=== PATIENT | female | born 2000 | race Caucasian/White ===

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

== ENCOUNTER 2018-04-10 22:14 | Inpatient (IN) | payer BC ==
[2018-04-10] MEDS ORDERED: Sodium Chloride 0.9% 10 ML Syringe FLUSH PRN (23:24)
[2018-04-10] MEDS ORDERED: Ondansetron 4 MG/2 ML SDV IVPUSH PRN (23:24)
[2018-04-10] MEDS ORDERED: Nalbuphine 20 MG/ML 1 ML Syringe IVPUSH PRN (23:24)
[2018-04-10] MEDS ORDERED: Zolpidem 5 MG Tab PO PRN (23:24)
[2018-04-10] MEDS ORDERED: Oxytocin/Lactated Ringers 10 UNIT/1,000 ML BAG IV SCH (23:30)
--- NOTE | 2018-04-10 23:37 | PCM.LDHP ---
L&D History of Present Illness - General Date of Service: 04/10/18 Admit Problem/Dx: Patient Status Order with Admit Dx/Problem 04/10/18 23:24 Patient Status [ADT] Routine Admission Diagnosis/Problem Admission Diagnosis/Problem Itching Source of Information: Patient History Limitations: Reports: No Limitations - History of Present Illness Introduction:: Patient is a 17 y/o at 39 5/7 wks who presents for concerns of itching on her hands and feet. States this started about Friday or so this last week. Forgot to bring it up at her appointment earlier this week. States has been worsening and feels like "bug bites all over my hands". Otherwise doing well. Notes good FM. No signs of labor - Related Data Allergies/Adverse Reactions: Allergies Allergy/AdvReac Type Severity Reaction Status Date / Time No Known Allergies Allergy Verified 05/12/17 21:58 Home Medications: Home Meds Ascorbate Calcium [Vitamin C] 500 mg PO DAILY 04/11/18 [History] Cholecalciferol (Vitamin D3) [Vitamin D] 5,000 unit PO DAILY 04/11/18 [History] Ferrous Sulfate [Iron] 325 mg PO DAILY 04/11/18 [History] Pnv No.95/Ferrous Fum/Folic AC [ Multivitamin Tablet] 1 each PO DAILY [History] Past Medical History - Past Health History Medical/Surgical History: Denies Medical/Surgical History SAGGER SOAK History: Reports: : 1 Para: 0 LMP (Approximate): Social & Family History - Tobacco Use Smoking Status *Q: Never Smoker - Caffeine Use Caffeine Use: Reports: Coffee, Soda, Tea - Alcohol Use Alcohol Use History: No - Recreational Drug Use Recreational Drug Use: No H&P Review of Systems - Review of Systems: Review Of Systems: See Below General: Reports: No Symptoms Pulmonary: Reports: No Symptoms Cardiovascular: Reports: No Symptoms Gastrointestinal: Reports: No Symptoms Genitourinary: Reports: No Symptoms Musculoskeletal: Reports: No Symptoms Skin: Reports: Pruritis Psychiatric: Reports: No Symptoms Neurological: Reports: No Symptoms L&D Exam - Exam Exam: See Below - OB Specific Contraction Intensity: Irritability Movement: Active Heart Tones: Present Heart Tones per Min: 135 Heart Rate (FHR) Variability: Moderate (6-25 bmp) Presentation: Vertex - Escobar Score Escobar Score Cervix Position: Posterior Escobar Score Consistency: Soft Escobar Score Effacement: 51-70% Escobar Score Dilation: 1-2 cm Escobar Score 's Station: -2 Escobar Score Total: 6 - Exam General: Alert, Oriented, Cooperative Lungs: Clear to Auscultation, Normal Respiratory Effort Cardiovascular: Regular Rate, Regular Rhythm GI/Abdominal Exam: Soft, Non-Tender Genitourinary: Normal external exam Extremities: Normal Inspection Skin: Warm, Dry, Intact - Patient Data Result Diagrams: 04/10/18 23:50 - Problem List (1) 39 weeks gestation of SNOMED Code(s): 60284017 ICD Code: Z3A.39 - 39 WEEKS GESTATION OF Status: Acute Current Visit: Yes (2) Solar pruritus SNOMED Code(s): 164815500 ICD Code: L29.9 - PRURITUS, UNSPECIFIED Status: Acute Current Visit: Yes Problem List Initiated/Reviewed/Updated: Yes Orders Last 24hrs: Active Orders 24 hr Category Date Time Status Patient Status [ADT] Routine ADT 04/10/18 23:24 Ordered Activity as Tolerated [RC] PFP Care 04/10/18 23:24 Ordered Communication Order [RC] ASDIRECTED Care 04/10/18 23:24 Ordered Communication Order [RC] ASDIRECTED Care 04/10/18 23:24 Ordered Communication Order [RC] ASDIRECTED Care 04/10/18 23:24 Ordered Heart Tones [RC] ASDIRECTED Care 04/10/18 23:24 Ordered Non Stress Test [RC] PER UNIT ROUTINE Care 04/10/18 23:24 Ordered Non Stress Test [RC] PER UNIT ROUTINE Care 04/10/18 23:24 Ordered Notify Provider [RC] ASDIRECTED Care 04/10/18 23:24 Ordered Notify Provider [RC] PRN Care 04/10/18 23:24 Ordered Peripheral IV Care [RC] . DIRECTED Care 04/10/18 23:24 Ordered Vaginal Exam [RC] ASDIRECTED Care 04/10/18 23:24 Ordered Vital Signs [RC] ASDIRECTED Care 04/10/18 23:24 Ordered Regular Diet [DIET] Diet 04/10/18 Dinner Ordered ALANINE AMINOTRANSFERASE,ALT [CHEM] Routine Lab 04/10/18 23:24 Ordered ASPARTATE AMNIOTRANSFERASE,AST [CHEM] Routine Lab 04/10/18 23:24 Ordered BILE ACIDS [REF] Routine Lab 04/10/18 23:24 Ordered CBC W/O DIFF,HEMOGRAM [HEME] Routine Lab 04/10/18 23:24 Ordered RAPID PLASMA REAGIN,RPR [CHEM] Routine Lab 04/10/18 23:24 Ordered TYPE AND SCREEN [BBK] Routine Lab 04/10/18 23:24 Ordered Lactated Ringers [Ringers, Lactated] 1,000 ml Med 04/10/18 23:30 Ordered IV ASDIRECTED Nalbuphine [Nubain] Med 04/10/18 23:24 Ordered 10 mg IVPUSH Q2H PRN Ondansetron [Zofran] Med 04/10/18 23:24 Ordered 4 mg IVPUSH Q4H PRN Oxytocin/Lactated Ringers [Pitocin in LR 10 Units/1,000 Med 04/10/18 23:30 Ordered ML] 10 unit in 1,000 ml IV .CONTINUOUS Oxytocin/Lactated Ringers [Pitocin in LR 10 Units/1,000 Med 04/10/18 23:30 Ordered ML] 10 unit in 1,000 ml IV TITRATE Sodium Chloride 0.9% [Saline Flush] Med 04/10/18 23:24 Ordered 10 ml FLUSH ASDIRECTED PRN Zolpidem [Ambien] Med 04/10/18 23:24 Ordered 5 mg PO BEDTIME PRN Electronic Heart Tones Ext w TOCO [WOMSER] Oth 04/10/18 23:24 Ordered Routine Electronic Heart Tones Internal [WOMSER] Per Unit Oth 04/10/18 23:24 Ordered Routine Peripheral IV Insertion Adult [OM.PC] Routine Oth 04/10/18 23:24 Ordered Resuscitation Status Routine Resus Stat 04/10/18 23:24 Ordered Assessment/Plan Comment:: 17 y/o at 39 5/7 wks who presents with concerns of itching of her hands and soles of her feet. Reviewed with patient there are a lot of etiologies for itching in . One concern, however, would be for cholestasis of . Unfortunately testing for this disorder takes about 3-5 days to return and if disorder present recommendations would be for delivery anytime after 36 weeks. Given current gestational age and and cervical exam recommendations would be for sending off laboratory testing, but beginning IOL. Patient and her boyfriend agree. * Bile acids and LFT's drawn * CBC, T&S, RPR * GBS negative, no need for antibiotics * Start pitocin for induction, AROM when able * Pain management per patient preference * Anticipate
[2018-04-11] MEDS: Lactated Ringers 1,000 ML IV SCH ×4 (00:19→16:05)
[2018-04-11] MEDS: Oxytocin/Lactated Ringers 10 UNIT/1,000 ML BAG IV SCH ×2 (00:20→12:38)
--- NOTE | 2018-04-11 08:17 | PCM.PNLD ---
Labor Progress Note - VS & Meds Active Medications: Current Medications Lactated Ringer's (Ringers, Lactated) 1,000 mls @ 40 mls/hr IV ASDIRECTED JATINDER Last Admin: 04/11/18 00:19 Dose: 40 mls/hr Oxytocin/Lactated Ringer's (Pitocin In Lr 10 Units/1,000 Ml) 10 unit in 1,000 mls @ 12 mls/hr IV TITRATE JATINDER; Protocol Last Titration: 04/11/18 06:30 Dose: 15 munits/min, 90 mls/hr Oxytocin/Lactated Ringer's (Pitocin In Lr 10 Units/1,000 Ml) 10 unit in 1,000 mls @ 500 mls/hr IV ASDIRECTED JATINDER Nalbuphine HCl (Nubain) 10 mg IVPUSH Q2H PRN PRN Reason: pain Ondansetron HCl (Zofran) 4 mg IVPUSH Q4H PRN PRN Reason: Nausea/Vomiting Sodium Chloride (Saline Flush) 10 ml FLUSH ASDIRECTED PRN PRN Reason: Keep Vein Open Zolpidem Tartrate (Ambien) 5 mg PO BEDTIME PRN PRN Reason: Insomnia - Uterine Contractions Uterine Monitoring Mode: External [place] Contraction Intensity: Mild Uterine Resting Tone: Soft - Monitoring Monitor Mode: External Ultrasound Heart Rate (FHR) Baseline: 140 Heart Rate (FHR) Variability: Moderate (6-25 bmp) Accelerations: Present, 15x15 Decelerations: None Strip Review: Category I - Vaginal Exam Dilation (cm): 2-3 Effacement (Percent): 50 Station: -2 Cervical Position: Midposition - Labor Progress (Free Text) Labor Progress: Currently on 15 of pitocin and only reporting mild contractions. AROM performed. Continue management otherwise
[2018-04-11] MEDS ORDERED: Ondansetron 4 MG/2 ML SDV IVPUSH PRN (09:43)
[2018-04-11] MEDS ORDERED: fentaNYL 100 MCG/2 ML SDV EPIDUR PRN (09:43)
[2018-04-11] MEDS ORDERED: ePHEDrine 50 MG/ML SDV IVPUSH PRN (09:43)
[2018-04-11] MEDS ORDERED: Bupivacaine/fentaNYL/NS 100 ML Bag EPIDUR SCH (09:45)
--- NOTE | 2018-04-11 09:49 | PCM.PREANE ---
Preanesthetic Assessment - Anesthesia/Transfusion/Family Hx Anesthesia History: Prior Anesthesia Without Reaction Family History of Anesthesia Reaction: No Transfusion History: No Prior Transfusion(s) Intubation History: Unknown - Review of Systems General: No Symptoms Pulmonary: No Symptoms Cardiovascular: No Symptoms, Palpitations (short intervals sporadic) Gastrointestinal: No Symptoms (GERD), Diarrhea Neurological: No Symptoms Other: Reports: None, Depression, Anxiety - Physical Assessment NPO Status Date: 04/11/18 NPO Status Time: 10:00 Pulse: 70 O2 Sat by Pulse Oximetry: 99 Respiratory Rate: 18 Blood Pressure: 110/57 Temperature: 36.8 C Height: 1.68 m Weight: 78.471 kg ASA Class: 2 Mental Status: Alert & Oriented x3 Airway Class: Mallampati = 2 Dentition: Reports: Normal Dentition, Caries Thyro-Mental Finger Breadths: 3 Mouth Opening Finger Breadths: 3 ROM/Head Extension: Full Lungs: Clear to Auscultation, Normal Respiratory Effort Cardiovascular: Regular Rate, Regular Rhythm, No Murmurs - Lab Values: Laboratory Last Values WBC 9.77 K/mm3 (3.98-10.04) 04/10/18 23:50 RBC 3.48 M/mm3 (3.98-5.22) L 04/10/18 23:50 Hgb 9.5 gm/L (11.2-15.7) L 04/10/18 23:50 Hct 30.1 % (34.1-44.9) L 04/10/18 23:50 MCV 86.5 fl (79.4-94.8) 04/10/18 23:50 MCH 27.3 pg (25.6-32.2) 04/10/18 23:50 MCHC 31.6 g/dl (32.2-35.5) L 04/10/18 23:50 RDW Std Deviation 40.3 fL (36.4-46.3) 04/10/18 23:50 Plt Count 223 K/mm3 (182-369) 04/10/18 23:50 MPV 11.5 fl (9.4-12.3) 04/10/18 23:50 AST 26 U/L (15-37) 04/10/18 23:50 ALT 26 U/L (14-59) 04/10/18 23:50 Blood Type O POSITIVE 04/10/18 23:50 Gel Antibody Screen Negative 04/10/18 23:50 Above lab values reviewed and noted and within acceptable ranges to proceed with epidural. - Allergies Allergies/Adverse Reactions: Allergies Allergy/AdvReac Type Severity Reaction Status Date / Time No Known Allergies Allergy Verified 05/12/17 21:58 - Anesthesia Plan Pre-Op Medication Ordered: None - Acknowledgements Anesthesia Type Planned: Epidural Pt an Appropriate Candidate for the Planned Anesthesia: Yes Alternatives and Risks of Anesthesia Discussed w Pt/Guardian: Yes Pt/Guardian Understands and Agrees with Anesthesia Plan: Yes PreAnesthesia Questionnaire - Past Health History Medical/Surgical History: Denies Medical/Surgical History Genitourinary History: Reports: UTI, Recurrent [employer] WORK[employer] History: Reports: Psychiatric History: Reports: Anxiety, Depression - Past Surgical History Female Surgical History: Reports: None - SUBSTANCE USE Smoking Status *Q: Never Smoker Second Hand Smoke Exposure: No Recreational Drug Use History: No - HOME MEDS Home Medications: Home Meds Ascorbate Calcium [Vitamin C] 500 mg PO DAILY 04/11/18 [History] Cholecalciferol (Vitamin D3) [Vitamin D] 5,000 unit PO DAILY 04/11/18 [History] Ferrous Sulfate [Iron] 325 mg PO DAILY 04/11/18 [History] Pnv No.95/Ferrous Fum/Folic AC [ Multivitamin Tablet] 1 each PO DAILY [History] - CURRENT (IN HOUSE) MEDS Current Meds: Current Medications Ephedrine Sulfate (Ephedrine Sulfate) 5 mg IVPUSH ASDIRECTED PRN PRN Reason: Hypotension Fentanyl (Sublimaze) 100 mcg EPIDUR Q3H PRN PRN Reason: Pain Fentanyl/Bupivacaine HCl (Fentanyl/Bupivacaine/Ns 2 Mcg-0.125% 100 Ml) 100 ml EPIDUR ASDIRECTED JATINDER Lactated Ringer's (Ringers, Lactated) 1,000 mls @ 40 mls/hr IV ASDIRECTED JATINDER Last Admin: 04/11/18 09:36 Dose: 999 mls/hr Oxytocin/Lactated Ringer's (Pitocin In Lr 10 Units/1,000 Ml) 10 unit in 1,000 mls @ 12 mls/hr IV TITRATE JATINDER; Protocol Last Titration: 04/11/18 06:30 Dose: 15 munits/min, 90 mls/hr Oxytocin/Lactated Ringer's (Pitocin In Lr 10 Units/1,000 Ml) 10 unit in 1,000 mls @ 500 mls/hr IV ASDIRECTED JATINDER Nalbuphine HCl (Nubain) 10 mg IVPUSH Q2H PRN PRN Reason: pain Last Admin: 04/11/18 09:35 Dose: 10 mg Ondansetron HCl (Zofran) 4 mg IVPUSH Q4H PRN PRN Reason: Nausea/Vomiting Ondansetron HCl (Zofran) 4 mg IVPUSH ONETIME PRN PRN Reason: Nausea/Vomiting Sodium Chloride (Saline Flush) 10 ml FLUSH ASDIRECTED PRN PRN Reason: Keep Vein Open Zolpidem Tartrate (Ambien) 5 mg PO BEDTIME PRN PRN Reason: Insomnia
[2018-04-11] MEDS ORDERED: Famotidine 20 MG Tab PO ONE (12:28)
[2018-04-11] MEDS ORDERED: Calcium Carbonate 500 MG Tab.Chew PO PRN (13:25)
[2018-04-11] MEDS ORDERED: Misoprostol 200 MCG Tab ONE (17:53)
--- NOTE | 2018-04-11 18:09 | PCM.DEL ---
L & D Note - General Info Date of Service: 04/11/18 - Delivery Note Labor: Induced by ARM, Induced by Oxytocin Delivery Outcome: Livebirth Infant Delivery Method: Spontaneous Vaginal Delivery-Single Infant Delivery Mode: Spontaneous Presentation: Right Occiput Anterior (HAMMAD) Nuchal Cord: Present (Not able to be reduced) Anesthesia Type: Epidural Amniotic Fluid Description: Clear Episiotomy Type: None Laceration: 2nd Degree, Perineal Suture type: Vicryl Suture size: 2-0 Placenta: Intact, Spontaneous Cord: 3 Vessels Estimated Blood Loss: 500 Resuscitation Needed: Yes Reading: Bulb Syringe, Stimulated, Warmed, [place] Used, Warmer Used Score 1 min: 8 Score 5 min: 9 Post Delivery Events: Shoulder Dystocia Delivery Comments (Free Text/Narrative):: Patient found to be complete and began pushing. With maternal pushing effort head delivered from an HAMMAD presentation. Nuchal cord present, but not able to be reduced. With gentle downward traction the anterior shoulder did not deliver right away. Patient repositioned slightly and still anterior shoulder did not deliver. Patient then placed in deeper McRobert's and suprapubic pressure applied and anterior shoulder did deliver. Total time < 30 seconds. Remainder of then quickly delivered and placed on maternal abdomen. Cord clamped and cut. Cord blood obtained. Placenta allowed time to separate and expelled intact. Bleeding was brisk and so patient given 600 mcg of buccal cytotec. She responded well to this. - General Info Date of Service: 04/11/18 - Patient Data Vitals - Most Recent: Last Vital Signs Temp 36.8 C 04/11/18 10:08 Pulse 70 04/11/18 10:08 Resp 18 04/11/18 10:08 BP 110/57 L 04/11/18 10:08 Pulse Ox 99 04/11/18 10:08 Weight - Most Recent: 78.471 kg I&O - Last 24 Hours: Intake & Output 04/11/18 04/11/18 04/11/18 06:59 14:59 22:59 Intake Total 0 Balance 0 Lab Results Last 24 Hours: Laboratory Results - last 24 hr 04/10/18 04/10/18 04/10/18 Range/Units 23:50 23:50 23:50 WBC 9.77 (3.98-10.04) K/mm3 RBC 3.48 L (3.98-5.22) M/mm3 Hgb 9.5 L (11.2-15.7) gm/L Hct 30.1 L (34.1-44.9) % MCV 86.5 (79.4-94.8) fl MCH 27.3 (25.6-32.2) pg MCHC 31.6 L (32.2-35.5) g/dl RDW Std Deviation 40.3 (36.4-46.3) fL Plt Count 223 (182-369) K/mm3 MPV 11.5 (9.4-12.3) fl AST 26 (15-37) U/L ALT 26 (14-59) U/L Blood Type O POSITIVE Gel Antibody Screen Negative Med Orders - Current: Current Medications Calcium Carbonate/Glycine (Tums) 1,000 mg PO Q2HR PRN PRN Reason: Indigestion Last Admin: 04/11/18 13:32 Dose: 1,000 mg Ephedrine Sulfate (Ephedrine Sulfate) 5 mg IVPUSH ASDIRECTED PRN PRN Reason: Hypotension Fentanyl (Sublimaze) 100 mcg EPIDUR Q3H PRN PRN Reason: Pain Last Admin: 04/11/18 10:09 Dose: 100 mcg Fentanyl/Bupivacaine HCl (Fentanyl/Bupivacaine/Ns 2 Mcg-0.125% 100 Ml) 100 ml EPIDUR ASDIRECTED JATINDER Last Admin: 04/11/18 10:09 Dose: 100 ml Lactated Ringer's (Ringers, Lactated) 1,000 mls @ 40 mls/hr IV ASDIRECTED JATINDER Last Admin: 04/11/18 16:05 Dose: 40 mls/hr Oxytocin/Lactated Ringer's (Pitocin In Lr 10 Units/1,000 Ml) 10 unit in 1,000 mls @ 12 mls/hr IV TITRATE JATINDER; Protocol Last Titration: 04/11/18 13:12 Dose: 18 munits/min, 108 mls/hr Oxytocin/Lactated Ringer's (Pitocin In Lr 10 Units/1,000 Ml) 10 unit in 1,000 mls @ 500 mls/hr IV ASDIRECTED JATINDER Nalbuphine HCl (Nubain) 10 mg IVPUSH Q2H PRN PRN Reason: pain Last Admin: 04/11/18 09:35 Dose: 10 mg Ondansetron HCl (Zofran) 4 mg IVPUSH Q4H PRN PRN Reason: Nausea/Vomiting Ondansetron HCl (Zofran) 4 mg IVPUSH ONETIME PRN PRN Reason: Nausea/Vomiting Sodium Chloride (Saline Flush) 10 ml FLUSH ASDIRECTED PRN PRN Reason: Keep Vein Open Zolpidem Tartrate (Ambien) 5 mg PO BEDTIME PRN PRN Reason: Insomnia Discontinued Medications Famotidine (Pepcid) 20 mg PO ONETIME ONE Stop: 04/11/18 12:29 Last Admin: 04/11/18 12:38 Dose: 20 mg Misoprostol (Cytotec) Confirm Administered Dose 600 mcg .ROUTE .STK-MED ONE Stop: 04/11/18 17:54 - Problem List & Annotations (1) 39 weeks gestation of SNOMED Code(s): 83263569 Code(s): Z3A.39 - 39 WEEKS GESTATION OF Status: Acute Current Visit: Yes (2) Solar pruritus SNOMED Code(s): 424015800 Code(s): L29.9 - PRURITUS, UNSPECIFIED Status: Acute Current Visit: Yes (3) Vaginal delivery SNOMED Code(s): 651054378 Code(s): O80 - ENCOUNTER FOR FULL-TERM UNCOMPLICATED DELIVERY Status: Acute Current Visit: Yes (4) Shoulder dystocia, delivered, current hospitalization SNOMED Code(s): 028794729 Code(s): O66.0 - OBSTRUCTED LABOR DUE TO SHOULDER DYSTOCIA Status: Acute Current Visit: Yes - Problem List Review Problem List Initiated/Reviewed/Updated: Yes - My Orders Last 24 Hours: My Active Orders 04/10/18 23:24 Patient Status [ADT] Routine Activity as Tolerated [RC] PFP Communication Order [RC] ASDIRECTED Communication Order [RC] ASDIRECTED Communication Order [RC] ASDIRECTED Non Stress Test [RC] PER UNIT ROUTINE Notify Provider [RC] ASDIRECTED Notify Provider [RC] PRN Peripheral IV Care [RC] . DIRECTED Vital Signs [RC] ASDIRECTED BILE ACIDS [REF] Routine RAPID PLASMA REAGIN,RPR [CHEM] Routine Nalbuphine [Nubain] 10 mg IVPUSH Q2H PRN Ondansetron [Zofran] 4 mg IVPUSH Q4H PRN Sodium Chloride 0.9% [Saline Flush] 10 ml FLUSH ASDIRECTED PRN Zolpidem [Ambien] 5 mg PO BEDTIME PRN Electronic Heart Tones Ext w TOCO [WOMSER] Routine Electronic Heart Tones Internal [WOMSER] Per Unit Routine Peripheral IV Insertion Adult [OM.PC] Routine Resuscitation Status Routine 04/10/18 23:30 Lactated Ringers [Ringers, Lactated] 1,000 ml IV ASDIRECTED Oxytocin/Lactated Ringers [Pitocin in LR 10 Units/1,000 ML] 10 unit in 1,000 ml IV ASDIRECTED Oxytocin/Lactated Ringers [Pitocin in LR 10 Units/1,000 ML] 10 unit in 1,000 ml IV TITRATE 04/11/18 13:25 Calcium Carbonate [Tums] 1,000 mg PO Q2HR PRN 04/11/18 17:59 Patient Status Manage Transfer [TRANSFER] Routine - Assessment Assessment:: 17 y/o G1 now P1001 PPD#0 from at 39 6/7 wks - Plan Plan:: * Routine cares * Encourage breast feeding * Discharge home in 2 days * Will notify patient of bile acid results once returns
[2018-04-11] MEDS ORDERED: Acetaminophen 325 MG Tab PO PRN (18:47)
[2018-04-11] MEDS ORDERED: Benzocaine/Menthol 20%-0.5% Spray 56 GM Canister TOP PRN (18:47)
[2018-04-11] MEDS ORDERED: Misoprostol 200 MCG Tab PO STA (18:47)
[2018-04-11] MEDS ORDERED: Docusate Sodium 100 MG Cap PO PRN (18:47)
[2018-04-11] MEDS ORDERED: Lanolin 100% Cream 7 GM Tube TOP PRN (18:47)
[2018-04-11] MEDS ORDERED: Witch Hazel Medicated Pads 100/Jar TOP PRN (18:47)
[2018-04-11] MEDS: Ibuprofen 600 MG Tab PO PRN (19:26)
[2018-04-11] MEDS ORDERED: Bupivacaine 0.25% 10 ML SDV ONE (22:00)
--- NOTE | 2018-04-12 05:06 | PCM.PNPP ---
- General Info Date of Service: 04/12/18 Functional Status: Reports: Pain Controlled, Tolerating Diet, Ambulating, Urinating - Review of Systems General: Reports: No Symptoms Pulmonary: Reports: No Symptoms Cardiovascular: Reports: No Symptoms Gastrointestinal: Reports: No Symptoms Genitourinary: Reports: Other (Some mild pain) Musculoskeletal: Reports: No Symptoms Neurological: Reports: No Symptoms - Patient Data Vital Signs - Most Recent: Last Vital Signs Temp 36.5 C 04/12/18 04:10 Pulse 64 04/12/18 04:10 Resp 14 04/12/18 04:10 BP 114/70 04/12/18 04:10 Pulse Ox 98 04/12/18 04:10 Weight - Most Recent: 78.471 kg I&O - Last 24 Hours: Intake & Output 04/11/18 04/11/18 04/12/18 14:59 22:59 06:59 Intake Total 0 7400 Balance 0 7400 Med Orders - Current: Current Medications Acetaminophen (Tylenol) 650 mg PO Q4H PRN PRN Reason: mild pain or fever Last Admin: 04/11/18 20:33 Dose: 650 mg Benzocaine/Menthol (Dermoplast Pain Relief [place]) 0 gm TOP ASDIRECTED PRN PRN Reason: Perineal Comfort Measure Last Admin: 04/11/18 19:26 Dose: 1 applic Docusate Sodium (Colace) 100 mg PO BID PRN PRN Reason: Constipation Emollient Ointment (Lansinoh Hpa) 0 gm TOP ASDIRECTED PRN PRN Reason: Sore Nipples Ibuprofen (Motrin) 600 mg PO Q6H PRN PRN Reason: Mild pain or fever Last Admin: 04/11/18 19:26 Dose: 600 mg Witch Olga (Tucks) 1 pad TOP ASDIRECTED PRN PRN Reason: Hemorrhoid pain Last Admin: 04/11/18 19:26 Dose: 1 applic Discontinued Medications Calcium Carbonate/Glycine (Tums) 1,000 mg PO Q2HR PRN PRN Reason: Indigestion Last Admin: 04/11/18 13:32 Dose: 1,000 mg Ephedrine Sulfate (Ephedrine Sulfate) 5 mg IVPUSH ASDIRECTED PRN PRN Reason: Hypotension Famotidine (Pepcid) 20 mg PO ONETIME ONE Stop: 04/11/18 12:29 Last Admin: 04/11/18 12:38 Dose: 20 mg Fentanyl (Sublimaze) 100 mcg EPIDUR Q3H PRN PRN Reason: Pain Last Admin: 04/11/18 10:09 Dose: 100 mcg Fentanyl/Bupivacaine HCl (Fentanyl/Bupivacaine/Ns 2 Mcg-0.125% 100 Ml) 100 ml EPIDUR ASDIRECTED [facility] Last Admin: 04/11/18 10:09 Dose: 100 ml Lactated Ringer's (Ringers, Lactated) 1,000 mls @ 40 mls/hr IV ASDIRECTED JATINDER Last Admin: 04/11/18 16:05 Dose: 40 mls/hr Oxytocin/Lactated Ringer's (Pitocin In Lr 10 Units/1,000 Ml) 10 unit in 1,000 mls @ 12 mls/hr IV TITRATE JATINDER; Protocol Last Titration: 04/11/18 17:46 Dose: 500 mls/hr Oxytocin/Lactated Ringer's (Pitocin In Lr 10 Units/1,000 Ml) 10 unit in 1,000 mls @ 500 mls/hr IV ASDIRECTED [facility] Misoprostol (Cytotec) Confirm Administered Dose 600 mcg .ROUTE .STK-MED ONE Stop: 04/11/18 17:54 Last Admin: 04/11/18 18:18 Dose: 600 mcg Misoprostol (Cytotec) 600 mcg PO ONETIME STA Stop: 04/11/18 18:48 Last Admin: 04/11/18 19:41 Dose: Not Given Nalbuphine HCl (Nubain) 10 mg IVPUSH Q2H PRN PRN Reason: pain Last Admin: 04/11/18 09:35 Dose: 10 mg Ondansetron HCl (Zofran) 4 mg IVPUSH Q4H PRN PRN Reason: Nausea/Vomiting Ondansetron HCl (Zofran) 4 mg IVPUSH ONETIME PRN PRN Reason: Nausea/Vomiting Sodium Chloride (Saline Flush) 10 ml FLUSH ASDIRECTED PRN PRN Reason: Keep Vein Open Zolpidem Tartrate (Ambien) 5 mg PO BEDTIME PRN PRN Reason: Insomnia - Interaction Disposition, : in Room with Family Interaction: Holding Infant Feeding: Breastfed ; Nursed Well Support Person: Significant Other - Recovery Exam Fundal Tone: Firm Fundal Level: 1 Fingerbreadths Below Umbilicus Fundal Placement: Midline Lochia Amount: Small Lochia Color: Rubra/Red Perineum Description: Edematous, Other (see below) Other Perinuem Description: second degree with repair Episiotomy/Laceration: Approximated Bladder Status: Nonpalpable Urinary Elimination: Voided - Exam General: Alert, Oriented, Cooperative GI/Abdominal Exam: Soft, Non-Tender Extremities: Normal Inspection Skin: Warm, Dry, Intact - Problem List & Annotations (1) 39 weeks gestation of SNOMED Code(s): 52606233 Code(s): Z3A.39 - 39 WEEKS GESTATION OF Status: Acute Current Visit: Yes (2) Solar pruritus SNOMED Code(s): 937210842 Code(s): L29.9 - PRURITUS, UNSPECIFIED Status: Acute Current Visit: Yes (3) Vaginal delivery SNOMED Code(s): 886970309 Code(s): O80 - ENCOUNTER FOR FULL-TERM UNCOMPLICATED DELIVERY Status: Acute Current Visit: Yes (4) Shoulder dystocia, delivered, current hospitalization SNOMED Code(s): 913455431 Code(s): O66.0 - OBSTRUCTED LABOR DUE TO SHOULDER DYSTOCIA Status: Acute Current Visit: Yes - Problem List Review Problem List Initiated/Reviewed/Updated: Yes - My Orders Last 24 Hours: My Active Orders 04/11/18 18:47 Activity as Tolerated [RC] PER UNIT ROUTINE Vital Signs [RC] 03,09,15,21 Acetaminophen [Tylenol] 650 mg PO Q4H PRN Benzocaine/Menthol [Dermoplast Pain Relief [place]] See Dose Instructions TOP ASDIRECTED PRN Docusate Sodium [Colace] 100 mg PO BID PRN Ibuprofen [Motrin] 600 mg PO Q6H PRN Lanolin [Lansinoh HPA] See Dose Instructions TOP ASDIRECTED PRN Witch Olga [Tucks] 1 pad TOP ASDIRECTED PRN Assess Lochia [WOMSER] Per Unit Routine Assess Uterine Involution [WOMSER] Per Unit Routine Breast Pump [WOMSER] Per Unit Routine Heat Therapy [OM.PC] PRN Ice Therapy [OM.PC] Per Unit Routine Perineal Care [OM.PC] Per Unit Routine Peripheral IV Discontinue [OM.PC] Routine Sitz Bath [OM.PC] Per Unit Routine 04/11/18 Dinner Regular Diet [DIET] 04/12/18 18:47 Heat Therapy [OM.PC] PRN - Assessment Assessment:: 17 y/o G1 now P1001 PPD#1 from at 39 6/7 wks - Plan Plan:: * Routine cares * Encourage breast feeding * Discharge home tomorrow * Will notify patient of bile acid results once returns
[2018-04-12] MEDS: Ibuprofen 600 MG Tab PO PRN ×2 (05:13→16:24)
--- NOTE | 2018-04-12 15:41 | PCM48HPAN ---
Post Anesthesia Note - EVALUATION WITHIN 48HRS OF ANESTHETIC Vital Signs in Normal Range: Yes Patient Participated in Evaluation: Yes Respiratory Function Stable: Yes Airway Patent: Yes Cardiovascular Function Stable: Yes Hydration Status Stable: Yes Pain Control Satisfactory: Yes Nausea and Vomiting Control Satisfactory: Yes Mental Status Recovered: Yes
[2018-04-13] MEDS: Ibuprofen 600 MG Tab PO PRN (05:26)
--- NOTE | 2018-04-13 06:59 | PCM.PNPP ---
- General Info Date of Service: 04/13/18 Functional Status: Reports: Pain Controlled, Tolerating Diet, Ambulating, Urinating - Review of Systems General: Reports: No Symptoms Pulmonary: Reports: No Symptoms Cardiovascular: Reports: No Symptoms Gastrointestinal: Reports: No Symptoms Genitourinary: Reports: No Symptoms Musculoskeletal: Reports: No Symptoms - Patient Data Vital Signs - Most Recent: Last Vital Signs Temp 36.7 C 04/13/18 05:23 Pulse 56 L 04/13/18 05:23 Resp 15 04/13/18 05:23 BP 122/73 04/13/18 05:23 Pulse Ox 98 04/13/18 05:23 Weight - Most Recent: 78.471 kg I&O - Last 24 Hours: Intake & Output 04/12/18 04/12/18 04/13/18 14:59 22:59 06:59 Intake Total 240 Balance 240 Med Orders - Current: Current Medications Acetaminophen (Tylenol) 650 mg PO Q4H PRN PRN Reason: mild pain or fever Last Admin: 04/11/18 20:33 Dose: 650 mg Benzocaine/Menthol (Dermoplast Pain Relief [place]) 0 gm TOP ASDIRECTED PRN PRN Reason: Perineal Comfort Measure Last Admin: 04/11/18 19:26 Dose: 1 applic Docusate Sodium (Colace) 100 mg PO BID PRN PRN Reason: Constipation Emollient Ointment (Lansinoh Hpa) 0 gm TOP ASDIRECTED PRN PRN Reason: Sore Nipples Last Admin: 04/12/18 16:23 Dose: 1 tube Ibuprofen (Motrin) 600 mg PO Q6H PRN PRN Reason: Mild pain or fever Last Admin: 04/13/18 05:26 Dose: 600 mg Witch Olga (Tucks) 1 pad TOP ASDIRECTED PRN PRN Reason: Hemorrhoid pain Last Admin: 04/11/18 19:26 Dose: 1 applic Discontinued Medications Calcium Carbonate/Glycine (Tums) 1,000 mg PO Q2HR PRN PRN Reason: Indigestion Last Admin: 04/11/18 13:32 Dose: 1,000 mg Ephedrine Sulfate (Ephedrine Sulfate) 5 mg IVPUSH ASDIRECTED PRN PRN Reason: Hypotension Famotidine (Pepcid) 20 mg PO ONETIME ONE Stop: 04/11/18 12:29 Last Admin: 04/11/18 12:38 Dose: 20 mg Fentanyl (Sublimaze) 100 mcg EPIDUR Q3H PRN PRN Reason: Pain Last Admin: 04/11/18 10:09 Dose: 100 mcg Fentanyl/Bupivacaine HCl (Fentanyl/Bupivacaine/Ns 2 Mcg-0.125% 100 Ml) 100 ml EPIDUR ASDIRECTED [facility] Last Admin: 04/11/18 10:09 Dose: 100 ml Lactated Ringer's (Ringers, Lactated) 1,000 mls @ 40 mls/hr IV ASDIRECTED [facility] Last Admin: 04/11/18 16:05 Dose: 40 mls/hr Oxytocin/Lactated Ringer's (Pitocin In Lr 10 Units/1,000 Ml) 10 unit in 1,000 mls @ 12 mls/hr IV TITRATE JATINDER; Protocol Last Titration: 04/11/18 17:46 Dose: 500 mls/hr Oxytocin/Lactated Ringer's (Pitocin In Lr 10 Units/1,000 Ml) 10 unit in 1,000 mls @ 500 mls/hr IV ASDIRECTED [facility] Misoprostol (Cytotec) Confirm Administered Dose 600 mcg .ROUTE .STK-MED ONE Stop: 04/11/18 17:54 Last Admin: 04/11/18 18:18 Dose: 600 mcg Misoprostol (Cytotec) 600 mcg PO ONETIME STA Stop: 04/11/18 18:48 Last Admin: 04/11/18 19:41 Dose: Not Given Nalbuphine HCl (Nubain) 10 mg IVPUSH Q2H PRN PRN Reason: pain Last Admin: 04/11/18 09:35 Dose: 10 mg Ondansetron HCl (Zofran) 4 mg IVPUSH Q4H PRN PRN Reason: Nausea/Vomiting Ondansetron HCl (Zofran) 4 mg IVPUSH ONETIME PRN PRN Reason: Nausea/Vomiting Sodium Chloride (Saline Flush) 10 ml FLUSH ASDIRECTED PRN PRN Reason: Keep Vein Open Zolpidem Tartrate (Ambien) 5 mg PO BEDTIME PRN PRN Reason: Insomnia - Interaction Disposition, : [place] in Room with Family Infant Interaction: Holding Feeding: Breastfed ; Nursed Well Support Person: Significant Other - Recovery Exam Fundal Tone: Firm Fundal Level: 1 Fingerbreadths Below Umbilicus Fundal Placement: Midline Lochia Amount: Scant Lochia Color: Rubra/Red Perineum Description: Other (see below) Other Perinuem Description: Second degree lac, min edema today Episiotomy/Laceration: Approximated Bladder Status: Voiding Urinary Elimination: Voided - Exam General: Alert, Oriented, Cooperative GI/Abdominal Exam: Soft, Non-Tender Extremities: Normal Inspection Skin: Warm, Dry, Intact - Problem List & Annotations (1) 39 weeks gestation of SNOMED Code(s): 29685725 Code(s): Z3A.39 - 39 WEEKS GESTATION OF Status: Acute Current Visit: Yes (2) Solar pruritus SNOMED Code(s): 802920769 Code(s): L29.9 - PRURITUS, UNSPECIFIED Status: Acute Current Visit: Yes (3) Vaginal delivery SNOMED Code(s): 141439203 Code(s): O80 - ENCOUNTER FOR FULL-TERM UNCOMPLICATED DELIVERY Status: Acute Current Visit: Yes (4) Shoulder dystocia, delivered, current hospitalization SNOMED Code(s): 465064328 Code(s): O66.0 - OBSTRUCTED LABOR DUE TO SHOULDER DYSTOCIA Status: Acute Current Visit: Yes - Problem List Review Problem List Initiated/Reviewed/Updated: Yes - My Orders Last 24 Hours: My Active Orders 04/12/18 18:47 Heat Therapy [OM.PC] PRN 04/13/18 06:59 Ready for Discharge [RC] PER UNIT ROUTINE - Assessment Assessment:: 17 y/o G1 now P1001 PPD#2 from at 39 6/7 wks - Plan Plan:: * Routine cares * Encourage breast feeding * Discharge home today * Will notify patient of bile acid results once returns
--- NOTE | 2018-04-13 07:00 | PCM.DCSUM1 ---
Discharge Summary - Discharge Data Discharge Date: 04/13/18 Discharge Disposition: Home, Self-Care 01 Condition: Good - Discharge Diagnosis/Problem(s) (1) 39 weeks gestation of SNOMED Code(s): 01783578 ICD Code: Z3A.39 - 39 WEEKS GESTATION OF Status: Acute Current Visit: Yes (2) Solar pruritus SNOMED Code(s): 386666056 ICD Code: L29.9 - PRURITUS, UNSPECIFIED Status: Acute Current Visit: Yes (3) Vaginal delivery SNOMED Code(s): 794977257 ICD Code: O80 - ENCOUNTER FOR FULL-TERM UNCOMPLICATED DELIVERY Status: Acute Current Visit: Yes (4) Shoulder dystocia, delivered, current hospitalization SNOMED Code(s): 372919806 ICD Code: O66.0 - OBSTRUCTED LABOR DUE TO SHOULDER DYSTOCIA Status: Acute Current Visit: Yes - Patient Summary/Data Complications: None Consults: None Recommended Follow-up Testing/Procedures: Follow up with Primary provider in 3-6 weeks for check Hospital Course: 17 y/o at 39 5/7 wks presented with complaints of itching of her hands and feet. Reviewed with patient possible diagnosis of cholestasis of . Did recommend testing, but as does take 3-5 days to return proceed with IOL after discussion of risks/benefits. This was done with pitocin and AROM. She progressed well to complete dilation and achieved a vaginal delivery notable for a short, < 30 second, shoulder dystocia resolved with McRobert's and suprapubic pressure. See delivery note for full details. she did well and was discharged home on PPD#2 - Patient Instructions Diet: Regular Diet as Tolerated Activity: As Tolerated Activity, Other: Pelvic Rest for 6 weeks Driving: May Drive Today Showering/Bathing: May Shower Showering/Bathing, Other: May Bathe Notify Provider of: Fever, Increased Pain, Swelling and Redness, Drainage, Nausea and/or Vomiting - Discharge Plan *PRESCRIPTION DRUG MONITORING PROGRAM REVIEWED*: Not Applicable *COPY OF PRESCRIPTION DRUG MONITORING REPORT IN PATIENT [place]: Not Applicable Home Medications: Home Meds Pnv No.95/Ferrous Fum/Folic AC [ Multivitamin Tablet] 1 each PO DAILY [History] Docusate Sodium [Colace] 100 mg PO BID PRN cap 04/12/18 [Rx] Ibuprofen [Motrin] 600 mg PO Q6H PRN tablet 04/12/18 [Rx] Patient Handouts: Breast Pumping Tips, Vaginal Delivery, Care After Referrals: Amber Garnica MD [Physician] - (3-6 weeks for check ) - Discharge Summary/Plan Comment DC Time >30 min.: No - Patient Data Vitals - Most Recent: Last Vital Signs Temp 36.7 C 04/13/18 05:23 Pulse 56 L 04/13/18 05:23 Resp 15 04/13/18 05:23 BP 122/73 04/13/18 05:23 Pulse Ox 98 04/13/18 05:23 Weight - Most Recent: 78.471 kg Med Orders - Current: Current Medications Acetaminophen (Tylenol) 650 mg PO Q4H PRN PRN Reason: mild pain or fever Last Admin: 04/11/18 20:33 Dose: 650 mg Benzocaine/Menthol (Dermoplast Pain Relief [place]) 0 gm TOP ASDIRECTED PRN PRN Reason: Perineal Comfort Measure Last Admin: 04/11/18 19:26 Dose: 1 applic Docusate Sodium (Colace) 100 mg PO BID PRN PRN Reason: Constipation Emollient Ointment (Lansinoh Hpa) 0 gm TOP ASDIRECTED PRN PRN Reason: Sore Nipples Last Admin: 04/12/18 16:23 Dose: 1 tube Ibuprofen (Motrin) 600 mg PO Q6H PRN PRN Reason: Mild pain or fever Last Admin: 04/13/18 05:26 Dose: 600 mg Witch Olga (Tucks) 1 pad TOP ASDIRECTED PRN PRN Reason: Hemorrhoid pain Last Admin: 04/11/18 19:26 Dose: 1 applic Discontinued Medications Calcium Carbonate/Glycine (Tums) 1,000 mg PO Q2HR PRN PRN Reason: Indigestion Last Admin: 04/11/18 13:32 Dose: 1,000 mg Ephedrine Sulfate (Ephedrine Sulfate) 5 mg IVPUSH ASDIRECTED PRN PRN Reason: Hypotension Famotidine (Pepcid) 20 mg PO ONETIME ONE Stop: 04/11/18 12:29 Last Admin: 04/11/18 12:38 Dose: 20 mg Fentanyl (Sublimaze) 100 mcg EPIDUR Q3H PRN PRN Reason: Pain Last Admin: 04/11/18 10:09 Dose: 100 mcg Fentanyl/Bupivacaine HCl (Fentanyl/Bupivacaine/Ns 2 Mcg-0.125% 100 Ml) 100 ml EPIDUR ASDIRECTED [facility] Last Admin: 04/11/18 10:09 Dose: 100 ml Lactated Ringer's (Ringers, Lactated) 1,000 mls @ 40 mls/hr IV ASDIRECTED [facility]AT[facility]ER Last Admin: 04/11/18 16:05 Dose: 40 mls/hr Oxytocin/Lactated Ringer's (Pitocin In Lr 10 Units/1,000 Ml) 10 unit in 1,000 mls @ 12 mls/hr IV TITRATE JATINDER; Protocol Last Titration: 04/11/18 17:46 Dose: 500 mls/hr Oxytocin/Lactated Ringer's (Pitocin In Lr 10 Units/1,000 Ml) 10 unit in 1,000 mls @ 500 mls/hr IV ASDIRECTED [facility] Misoprostol (Cytotec) Confirm Administered Dose 600 mcg .ROUTE .[facility]-MED ONE Stop: 04/11/18 17:54 Last Admin: 04/11/18 18:18 Dose: 600 mcg Misoprostol (Cytotec) 600 mcg PO ONETIME STA Stop: 04/11/18 18:48 Last Admin: 04/11/18 19:41 Dose: Not Given Nalbuphine HCl (Nubain) 10 mg IVPUSH Q2H PRN PRN Reason: pain Last Admin: 04/11/18 09:35 Dose: 10 mg Ondansetron HCl (Zofran) 4 mg IVPUSH Q4H PRN PRN Reason: Nausea/Vomiting Ondansetron HCl (Zofran) 4 mg IVPUSH ONETIME PRN PRN Reason: Nausea/Vomiting Sodium Chloride (Saline Flush) 10 ml FLUSH ASDIRECTED PRN PRN Reason: Keep Vein Open Zolpidem Tartrate (Ambien) 5 mg PO BEDTIME PRN PRN Reason: Insomnia
[2018-04-13 12:03] VITALS: BP 129/80
== END 2018-04-13 11:35 | disposition home or self-care (01) | DRG 560 ==
LOC: JD.OBCHECK 22:14 → JD.OB 04-11 00:12 → OBSVTOIN 04-11 18:07
PROVIDERS: ADMIT Obstetrics & Gynecology; ATTEND Obstetrics & Gynecology
PROC: 3E033VJ Introduction of Other Hormone into Peripheral Vein, Percutaneous Approach (ICD-10-PCS; principal; 2018-04-11)
PROC: 10907ZC Drainage of Amniotic Fluid, Therapeutic from Products of Conception, Via Natural or Artificial Opening (ICD-10-PCS; principal; 2018-04-11)
PROC: 0KQM0ZZ Repair Perineum Muscle, Open Approach (ICD-10-PCS; principal; 2018-04-11)
PROC: 10E0XZZ Delivery of Products of Conception, External Approach (ICD-10-PCS; principal; 2018-04-11)
PROC: 6A550ZT Pheresis of Cord Blood Stem Cells, Single (ICD-10-PCS; principal; 2018-04-11)
PROC: 3E0R3BZ Introduction of Anesthetic Agent into Spinal Canal, Percutaneous Approach (ICD-10-PCS; 2018-04-11)
PROC: 00HU33Z Insertion of Infusion Device into Spinal Canal, Percutaneous Approach (ICD-10-PCS; 2018-04-11)
DX: O26.62 Liver and biliary tract disorders in childbirth (principal); O66.0 Obstructed labor due to shoulder dystocia; K83.1 Obstruction of bile duct; O69.81X0 Labor and delivery complicated by cord around neck, without compression, not applicable or unspecified; O70.1 Second degree perineal laceration during delivery; Z3A.39 39 weeks gestation of pregnancy; Z37.0 Single live birth
CPT/HCPCS: 51702; 59025; 59300; 59409; 82239; 84450; 84460; 85027; 86592; 86850; 86900; 86901; A9270-GY; J2300; J2590; J3010; J3490; J7120